=== PATIENT | female | born 1965 | race Caucasian/White ===

== ENCOUNTER → 2025-05-21 | Outpatient (CLI) | payer MEDICAID, SELFPAY ==
--- NOTE | 2025-05-21 09:45 | XR_ITS ---
Examination: Breast ultrasound complete, bilateral Date and time of exam: May 21, 2025 1030 hours INDICATIONS: Left breast lump depicted upper outer left breast one month ago on clinical breast examination by physician, patient's dates of bilateral breast soreness beginning 2 years ago Technique: Real-time grayscale ultrasonographic imaging bilateral breasts, including all 4 quadrants as well as nipple retroareolar and axillary regions. Findings: Sonographic images right and left breast demonstrated no cystic or solid masses IMPRESSION: BI-RADS Category 1: Negative studies Repeat this study in 3 months if palpable breast abnormality persists
--- NOTE | 2025-05-21 10:45 | XR_ITS ---
Examination: Diagnostic digital mammography, bilateral Computer aided detection 3-D breast Tomosynthesis, bilateral Date and time of exam: May 21, 2025 10:40 AM INDICATIONS: Left breast lump noted on clinical breast examination by physician one month ago Technique: Nonmagnified MLO, CC views of the breasts to been obtained, reconstructed from 3-D Tomosynthesis images. R2 computer aided detection program utilized for evaluation of suspicious masses and/or abnormal calcifications. 3-D Tomosynthesis images obtained. Findings: Scattered areas of fibroglandular density No suspicious masses depicted on the spot compression views Benign calcifications Impression: BI-RADS Category 2: Benign findings Recommend yearly follow-up mammography Repeat the left breast sonogram in 3 months if palpable breast abnormality persists.
== END | disposition home or self-care (01) ==
PROVIDERS: PCP Physician Assistant; Referring Provider Obstetrics & Gynecology; Visit Provider Obstetrics & Gynecology
DX: R92.323 Mammographic fibroglandular density, bilateral breasts (principal); R92.8 Other abnormal and inconclusive findings on diagnostic imaging of breast
CPT/HCPCS: 76641; 77062; 77066; G0279